=== PATIENT | female | born 1990 | race Caucasian/White ===

== ENCOUNTER 2023-10-18 10:52 | Emergency (ER) | payer OTHER ==
[~2023-10-18] VITALS: Ht 170.1 cm; Wt 86.2 kg
[2023-10-18] MEDS ORDERED: AMOXICILLIN500 M3 PO (11:10)
== END 2023-10-18 11:22 | disposition home or self-care (01) ==
LOC: ED 10:52
DX: K02.9 Dental caries, unspecified (principal)